=== PATIENT | female | born 2000 | race African-American/Black ===

== ENCOUNTER 2019-08-06 12:57 | Emergency (ER) | payer OTHER ==
[~2019-08-06] VITALS: Ht 154.9 cm; Wt 77.1 kg
[2019-08-06 13:17] VITALS: BP 121/77
--- NOTE | 2019-08-06 13:25 | NUR ---
ED Nurse Note: Patient walked into ED from home c/o lower abdominal cramping for 1 week. patient reports nausea and vomiting. patient denies any diarrhea. patient reports she may be . patient is alert awake x4 ambulatory steady gait, breathing unlabored and even, speaking in full sentences.
[2019-08-06] MEDS ORDERED: Ketorolac 30mg Inj IM ONE (13:30)
[2019-08-06 13:50] LABS: APPEARANCE,URINE CLEAR; BILIRUBIN, URINE NEGATIVE (NEGATIVE); COLOR,URINE PALE YELLOW; GLUCOSE, URINE (UA) NEGATIVE (NEGATIVE); KETONES,URINE NEGATIVE (NEGATIVE); LEUKOCYTE ESTERASE ,URINE NEGATIVE (NEGATIVE); NITRITE,URINE NEGATIVE (NEGATIVE); PH,URINE 8 (4.5-8.0); PROTEIN,URINE NEGATIVE (NEGATIVE); UROBILINOGEN,URINE NORMAL MG/DL (0.0-1.0)
--- NOTE | 2019-08-06 14:18 | NUR ---
ED Nurse Note: patient taken to U/S.
[2019-08-06 14:32] LABS: BASOPHILS % (AUTO) 2.1 % (0.0-2.0); EOSINOPHILS % (AUTO) 1.6 % (0.0-3.0); HEMATOCRIT 38.6 % (37.0-47.0); HEMOGLOBIN 13.6 G/DL (12.0-16.0); LYMPHOCYTES % (AUTO) 37.4 % (20.0-45.0); MEAN CORPUSCULAR VOLUME 89 FL (80-99); MONOCYTES % (AUTO) 7.7 % (1.0-10.0); NEUTROPHILS % (AUTO) 51.2 % (45.0-75.0); PLATELET COUNT 127 K/UL (150-450); RED BLOOD COUNT 4.36 M/UL (4.20-5.40); RED CELL DISTRIBUTION WIDTH 11.3 % (11.6-14.8); WHITE BLOOD COUNT 4.3 K/UL (4.8-10.8)
[2019-08-06 14:50] LABS: ANION GAP 9 mmol/L (5-15); BLOOD UREA NITROGEN 10 mg/dL (7-18); CALCIUM 9.2 MG/DL (8.5-10.1); CARBON DIOXIDE 24 MMOL/L (21-32); CHLORIDE 105 MMOL/L (98-107); POTASSIUM 4.2 MMOL/L (3.5-5.1); SODIUM 138 MMOL/L (136-145)
[2019-08-06 14:54] LABS: ALANINE AMINOTRANSFERASE 19 U/L (12-78); ALBUMIN 3.8 G/DL (3.4-5.0); ALBUMIN/GLOBULIN RATIO 0.9 (1.0-2.7); ALKALINE PHOSPHATASE 66 U/L (46-116); ASPARTATE AMINO TRANSFERASE 26 U/L (15-37); BILIRUBIN,TOTAL 0.5 MG/DL (0.2-1.0)
--- NOTE | 2019-08-06 15:10 | Diagnostic Imaging Report ---
EXAM: US First Trimester , Transabdominal and Transvaginal CLINICAL HISTORY: PAIN TECHNIQUE: Real-time transabdominal and transvaginal obstetrical ultrasound of the maternal pelvis and a first trimester with image documentation. Transvaginal imaging was used for better evaluation of the fetus and adnexa. COMPARISON: No relevant prior studies available. FINDINGS: Normal size uterus, 8.8 x 4.1 x 6.1 cm. Thickened endometrium measuring 2 cm. No IUP. 3.4 cm simple right and 2.1 cm simple left ovarian cysts. Potential corpus lutea. No free pelvic fluid. IMPRESSION: No IUP. Cannot exclude ectopic , but no suspicious adnexal mass. 3.4 cm right and 2.1 cm left simple ovarian cysts, potential corpus luteum.
--- NOTE | 2019-08-06 15:30 | Emergency Room Report ---
History of Present Illness General Chief Complaint: Abdominal Pain Source: Patient Present Illness HPI 18-year-old female with no symptom past medical history here complaining of few weeks of bilateral lower abdominal pain and multiple bouts of nausea vomiting. Denies fever and chills, diarrhea and constipation. Denies diffuse abdominal pain. Reports that her last menstrual period was 5 weeks ago. Has taken 2 test at home 2 weeks ago and they were both negative. Denies vaginal bleeding spotting. Denies syncope, shortness of breath, chest pain, headache and dizziness. Patient is sitting comfortably ambulatory with normal vital signs. Denies . Has not been in the past. Denies tobacco smoke, marijuana use, no other drug use. Allergies: Coded Allergies: No Known Allergies (Unverified , 08/06/19) Patient History Past Medical History: see triage record Past Surgical History: unable to obtain Pertinent Family History: none Last Menstrual Period: 06/05/2019 Now: No - Unknown : 0 Para: 0 Immunizations: UTD Reviewed Nursing Documentation: PMH: Agreed; PSxH: Agreed Nursing Documentation-PMH Past Medical History: No Stated History Review of Systems All Other Systems: negative except mentioned in HPI Physical Exam Vital Signs Date Time Temp Pulse Resp B/P (MAP) Pulse Ox O2 Delivery O2 Flow Rate FiO2 08/06/19 13:17 98.2 60 18 121/77 98 Room Air Sp02 EP Interpretation: reviewed, normal General Appearance: no apparent distress, alert, GCS 15, non-toxic Head: normocephalic, atraumatic Eyes: bilateral eye normal inspection, bilateral eye PERRL ENT: hearing grossly normal, normal pharynx, no angioedema, normal voice Neck: full range of motion, supple/symm/no masses Respiratory: chest non-tender, lungs clear, normal breath sounds, no rhonchi, no wheezing, speaking full sentences Cardiovascular #1: regular rate, rhythm, no edema, no murmur Gastrointestinal: normal bowel sounds, non tender, soft, non-distended, no guarding, no rebound, guarding - LLQ Rectal: deferred Genitourinary: no CVA tenderness Musculoskeletal: back normal, no calf tenderness Neurologic: alert, motor strength/tone normal, oriented Psychiatric: normal inspection, judgement/insight normal Skin: no rash Lymphatic: normal inspection Medical Decision Making PA Attestation All my diagnosis and treatment plans were reviewed ad discussed with my supervising physician Dr. Voss Diagnostic Impression: Primary Impression: Abdominal pain during Additional Impression: Ovarian cyst ER Course 18-year-old female with no symptom past medical history here complaining of few weeks of bilateral lower abdominal pain and multiple bouts of nausea vomiting. Denies fever and chills, diarrhea and constipation. Denies diffuse abdominal pain. Reports that her last menstrual period was 5 weeks ago. Has taken 2 test at home 2 weeks ago and they were both negative. Denies vaginal bleeding spotting. Denies syncope, shortness of breath, chest pain, headache and dizziness. Patient is sitting comfortably ambulatory with normal vital signs. Denies . Has not been in the past. Denies tobacco smoke, marijuana use, no other drug use. Ddx considered but are not limited to: Ectopic , threatened , spontaneous , abdominal pain during , ovarian cyst Vital signs: are WNL, pt. is afebrile H&PE are most consistent with: Ovarian cyst bilaterally, abdominal pain during ORDERS: CBC, CMP, UA, urine , beta-hCG, type and screen, OB ultrasound , vitamins, Tylenol, diclegis ED INTERVENTIONS: NS bolus, Zofran, Pepcid DISCHARGE: At this time pt. is stable for d/c to home. Will provide printed patient care instructions, and any necessary prescriptions. Care plan and follow up instructions have been discussed with the patient prior to discharge. Patient to follow-up with [facility] in 24 to 48 hours, repeat test and ultrasound , however if worsening pain, syncope and any new symptoms such as spotting or bleeding return to the emergency room. At this time ectopic has been ruled out. No IUP noted on ultrasound due to early on the . CT/MRI/US Diagnostic Results CT/MRI/US Diagnostic Results : Imaging Test Ordered: OB ultrasound Impression COMPARISON: No relevant prior studies available. FINDINGS: Normal size uterus, 8.8 x 4.1 x 6.1 cm. Thickened endometrium measuring 2 cm. No IUP. 3.4 cm simple right and 2.1 cm simple left ovarian cysts. Potential corpus lutea. No free pelvic fluid. IMPRESSION: No IUP. Cannot exclude ectopic , but no suspicious adnexal mass. 3.4 cm right and 2.1 cm left simple ovarian cysts, potential corpus luteum. Last Vital Signs Date Time Temp Pulse Resp B/P (MAP) Pulse Ox O2 Delivery O2 Flow Rate FiO2 08/06/19 14:18 60 18 Room Air 08/06/19 13:17 98.2 121/77 (92) 98 Disposition: HOME, SELF-CARE Condition: Stable Scripts Doxylamine/Pyridoxine Hcl (DICLEFLORIAN DR 10-10 MG TABLET) 1 Each Tablet.dr 1 EACH PO TID, #21 TAB Prov: Eitan Marie 08/06/19 Acetaminophen* (TYLENOL EXTRA STRENGTH*) 500 Mg Tablet 500 MG ORAL Q8H PRN for Prn Headache/Temp > 101, #30 TAB 0 Refills Prov: Eitan Marie 08/06/19 Vit/Iron Fumarate/Fa ( VITAMINS TABLET) 1 Each Tablet 1 EACH PO DAILY, #30 TAB Prov: Eitan Marie 08/06/19 Referrals: Teresa LAZCANO,REFERRING (PCP) Patient Instructions: Abdominal Pain During , Ovarian Cyst, Easy-to- Read Additional Instructions: Take medication as directed, follow-up with your primary care provider, you need to be seen by [facility] in 24 to 48 hours for repeat of tests and ultrasound. At this time it is too early to detect on ultrasound. If worsening pain, bleeding return to the emergency room immediately. Avoid drinking alcohol. Eitan Marie Aug 06, 2019 15:30
[2019-08-06] MEDS ORDERED: DICLEGIS DR 101 EACH PO (15:33)
[2019-08-06] MEDS ORDERED: TYLENOL EXTRA500 MG ORAL (15:33)
[2019-08-06] MEDS ORDERED: PRENATAL VITAM1 EAC3 PO (15:33)
[2019-08-06 16:00] VITALS: BP 121/77
--- NOTE | 2019-08-06 16:00 | NUR ---
ER DISCHARGE NOTE: Patient is cleared to be discharged per PEE MONK, pt is aox4, on room air, with stable vital signs. pt was given dc and prescription instructions, pt was able to verbalize understanding, pt id band and iv site removed without complications. pt is able to ambulate with steady gait. pt took all belongings.
== END 2019-08-06 16:00 | disposition home or self-care (01) ==
LOC: EMR 13:45
DX: R10.9 Unspecified abdominal pain (principal); N83.202 Unspecified ovarian cyst, left side; N83.201 Unspecified ovarian cyst, right side; R11.2 Nausea with vomiting, unspecified
CPT/HCPCS: 36415; 76830; 76856; 80053; 81003; 81025; 83690; 84702; 85025; 86850; 86900; 86901; 96361; 96372; 96374; 96375; J2405; J7030; S0028; Z7502; 99284

== ENCOUNTER → 2019-12-01 | Emergency (ER) | payer OTHER ==
[~2019-12-01] MED LIST: ACETAMINOPHEN-1 EAC1 ORAL; ACETAMINOPHEN500 M3 ORAL; DICLEGIS DR 101 EACH PO; Morphine Sulfate 4mg/ml Inj (IV USE ONLY) ONE; PRENATAL VITAM1 EAC3 PO; TYLENOL EXTRA500 MG ORAL
--- NOTE | 2019-12-01 02:39 | Emergency Room Report ---
History of Present Illness General Source: Patient Present Illness HPI This is a 19-year-old female who is approximate 21 weeks . She is primigravida. She presents with chief complaint abdominal pain. Onset was 3 hours prior to arrival. Pain was localized to the right lower quadrant. Pain is sharp. Worse with movement. Worse with palpation. No fever chills but no nausea no vomiting. No dysuria or urgency. She does have frequency. Pain is 8 out of 10. Allergies: Coded Allergies: No Known Allergies (Unverified , 08/06/19) COVID-19 Screening Contact w/high risk pt: No Recent Travel to affected area: No Experienced COVID-19 symptoms?: No COVID-19 Testing performed HAIR PREPARER: No Patient History Past Medical History: none, see triage record, old chart reviewed Past Surgical History: none Pertinent Family History: none Social History: Denies: smoking Now: No Immunizations: other Reviewed Nursing Documentation: PMH: Agreed; PSxH: Agreed Review of Systems Eye: Denies: eye pain, blurred vision ENT: Denies: ear pain, nose congestion, throat swelling Respiratory: Denies: cough, shortness of breath Cardiovascular: Denies: chest pain, palpitations Gastrointestinal: Reports: abdominal pain; Denies: diarrhea, nausea, vomiting Musculoskeletal: Denies: back pain, joint pain Skin: Denies: rash Neurological: Denies: headache, numbness Endocrine: Denies: increased thirst, increased urine Hematologic/Lymphatic: Denies: easy bruising All Other Systems: negative except mentioned in HPI Physical Exam Vitals normal Sp02 EP Interpretation: reviewed, normal General Appearance: well appearing, no apparent distress, alert Head: normocephalic, atraumatic Eyes: bilateral eye PERRL, bilateral eye EOMI ENT: hearing grossly normal, normal pharynx Neck: full range of motion, supple, no meningismus Respiratory: chest non-tender, lungs clear, normal breath sounds Cardiovascular #1: regular rate, rhythm, no murmur Gastrointestinal: normal bowel sounds, no mass, no organomegaly, no bruit, non- distended, tenderness - Right lower quadrant and right flank pain Musculoskeletal: back normal, normal range of motion, gait/station normal Psychiatric: mood/affect normal Medical Decision Making Diagnostic Impression: Primary Impression: Abdominal pain during ER Course Patient with abdominal pain and . Differential includes appendicitis, round ligament pain, UTI, pyelonephritis, torsion, ovarian cyst to name a few. I discussed the diagnostic testing in this patient. She is 21 weeks so radiation from [address] is unlikely to cause defects. Because I need to rule out appendicitis and because of the patient weight, decided to do a CT scan. Risk and benefit of radiation explained to the patient and she approved for CT scan. I did a bedside ultrasound. Showed a live IUP with good movement and heartbeat. CT/MRI/US Diagnostic Results CT/MRI/US Diagnostic Results : Imaging Test Ordered: CT abdomen pelvis Impression Read by radiologist. Normal appendix. Fetus in vertex position. Status: improved Disposition: HOME, SELF-CARE Condition: Stable Scripts Acetaminophen With Codeine (T#3) (TYLENOL #3 TAB*) Y Tab 1 TAB ORAL Q8H PRN for For Pain, #20 TAB Prov: Mikey Medellin MD 12/01/19 Acetaminophen* (ACETAMINOPHEN EXTRA STRENGTH*) 500 Mg Tablet 500 MG ORAL Q8H PRN for Fever/Headache/Mild Pain, #30 TAB Prov: Mikey Medellin MD 12/01/19 Referrals: Teresa LAZCANO,REFERRING (PCP) Patient Instructions: Abdominal Pain During Additional Instructions: Follow-up with your doctor in 7 days. Return if symptoms worsen. Mikey Medellin MD December 01, 2019 02:39
[2019-12-01 03:12] LABS: APPEARANCE,URINE CLEAR; BILIRUBIN, URINE NEGATIVE (NEGATIVE); COLOR,URINE PALE YELLOW; GLUCOSE, URINE (UA) NEGATIVE (NEGATIVE); KETONES,URINE NEGATIVE (NEGATIVE); LEUKOCYTE ESTERASE ,URINE 1+ (NEGATIVE); NITRITE,URINE NEGATIVE (NEGATIVE); PH,URINE 6 (4.5-8.0); PROTEIN,URINE NEGATIVE (NEGATIVE); UROBILINOGEN,URINE 1 MG/DL (0.0-1.0)
[2019-12-01 03:14] LABS: HEMATOCRIT 34.7 % (37.0-47.0); HEMOGLOBIN 11.7 G/DL (12.0-16.0); MEAN CORPUSCULAR VOLUME 95 FL (80-99); RED BLOOD COUNT 3.66 M/UL (4.20-5.40); WHITE BLOOD COUNT 5.7 K/UL (4.8-10.8)
[2019-12-01 03:15] LABS: ALANINE AMINOTRANSFERASE 19 U/L (12-78); ALBUMIN 3.1 G/DL (3.4-5.0); ALBUMIN/GLOBULIN RATIO 0.8 (1.0-2.7); ALKALINE PHOSPHATASE 69 U/L (46-116); ANION GAP 8 mmol/L (5-15); ASPARTATE AMINO TRANSFERASE 20 U/L (15-37); BASOPHILS % (AUTO) 1.5 % (0.0-2.0); BILIRUBIN,TOTAL 0.4 MG/DL (0.2-1.0); BLOOD UREA NITROGEN 4 mg/dL (7-18); CALCIUM 8.5 MG/DL (8.5-10.1); CARBON DIOXIDE 25 MMOL/L (21-32); CHLORIDE 104 MMOL/L (98-107); EOSINOPHILS % (AUTO) 1.9 % (0.0-3.0); LYMPHOCYTES % (AUTO) 30.9 % (20.0-45.0); NEUTROPHILS % (AUTO) 60.7 % (45.0-75.0); PLATELET COUNT 119 K/UL (150-450); RED CELL DISTRIBUTION WIDTH 13.1 % (11.6-14.8); SODIUM 137 MMOL/L (136-145)
--- NOTE | 2019-12-01 04:23 | NUR ---
see downtime form
--- NOTE | 2019-12-01 09:09 | Diagnostic Imaging Report ---
EXAM: CT Abdomen and Pelvis Without Intravenous Contrast CLINICAL HISTORY: 23 wks , c/o of R sided pelvic pain, ER physician OK'd CT, pt. Understands and signed consent TECHNIQUE: Axial computed tomography images of the abdomen and pelvis without intravenous contrast. CTDI is 7.8 mGy and DLP is 410 mGy-cm. One or more of the following dose reduction techniques were used: automated exposure control, adjustment of the mA and/or kV according to patient size, use of iterative reconstruction technique. Coronal and sagittal reformatted images were created and reviewed. COMPARISON: No relevant prior studies available. FINDINGS: Lung bases: Unremarkable. No mass. No consolidation. ABDOMEN: Liver: Unremarkable. Gallbladder and bile ducts: Prominent gallbladder without pericholecystic fluid or stranding, likely due to fasting state. Pancreas: Unremarkable. No ductal dilation. Spleen: Mild splenomegaly 13.9 cm. Likely due to . Adrenals: Unremarkable. No mass. Kidneys and ureters: Unremarkable. No obstructing stones. No hydronephrosis. Stomach and bowel: Prominent colonic stool burden, which could be a cause for pain. No obstruction. No mucosal thickening. PELVIS: Appendix: Normal appendix. Bladder: Unremarkable. No stones. Reproductive: Fetus in vertex position in the gravid uterus. Anterior placenta clear ventral cervical os. ABDOMEN and PELVIS: Intraperitoneal space: Unremarkable. No free air. No significant fluid collection. Bones/joints: No acute fracture. No dislocation. Soft tissues: Unremarkable. Vasculature: Unremarkable. No abdominal aortic aneurysm. Lymph nodes: Unremarkable. No enlarged lymph nodes. IMPRESSION: 1. Normal appendix. 2. Prominent colonic stool burden, which could be a cause for pain. 3. Fetus in vertex position in the gravid uterus. Anterior placenta clear ventral cervical os. 4. Prominent gallbladder without pericholecystic fluid or stranding, likely due to fasting state. 5. Mild splenomegaly 13.9 cm. Likely due to .
== END | disposition home or self-care (01) ==
LOC: EMR 02:34
DX: O26.892 Other specified pregnancy related conditions, second trimester (principal); R10.31 Right lower quadrant pain; Z3A.21 21 weeks gestation of pregnancy
CPT/HCPCS: 36415; 74176; 80053; 81003; 85025; J2270; J2405; Z7502; 99284